=== PATIENT | female | born 1980 | race Caucasian/White ===

== ENCOUNTER 2017-12-20 11:20 | Outpatient (CLI) | payer MEDICAID ==
[2017-12-20 19:26] LABS: BASOPHILS % (AUTO) 0.4 %; EOSINOPHILS # (AUTO) 0.4 10^3/uL (0.0-0.7); EOSINOPHILS % (AUTO) 8.4 %; HGB - HEMOGLOBIN 13.7 g/dL (12.0-16.0); LYMPHOCYTES # (AUTO) 2.1 10^3/uL (1.5-3.5); LYMPHOCYTES % (AUTO) 41.6 %; MEAN CORPUSCULAR HEMOGLOBIN 36.8 pg (27.0-31.0); MEAN CORPUSCULAR HGB CONC 33.1 g/dL (32.0-36.0); MEAN CORPUSCULAR VOLUME 111.4 fL (81.0-99.0); MEAN PLATELET VOLUME 8.6 fL (7.9-10.8); MONOCYTES # (AUTO) 0.5 10^3/uL (0.0-1.0); MONOCYTES % (AUTO) 9.5 %; NEUTROPHILS % (AUTO) 40.1 %; PLT - PLATELET COUNT 154 10^3/uL (130-450); RED BLOOD COUNT 3.73 10^6/uL (4.20-5.40); RED CELL DISTRIBUTION WIDTH 13.3 % (12.0-15.0)
[2017-12-20 19:53] LABS: ALBUMIN 4.3 g/dL (3.2-5.5); ALBUMIN/GLOBULIN RATIO 1.5 (1.0-2.2); ALKALINE PHOSPHATASE 60 IU/L (42-121); ALT ALANINE AMINOTRANSFERASE 45 IU/L (10-60); AST ASPARTATE AMINOTRANSFERASE 62 IU/L (10-42); BILIRUBIN,TOTAL 1.1 mg/dL (0.2-1.0); BUN - BLOOD UREA NITROGEN 16 mg/dL (6-20); CALCIUM 9.1 mg/dL (8.5-10.3); CARBON DIOXIDE - CO2 25 mmol/L (21-32); CHLORIDE 103 mmol/L (101-111); CHOL/HDL RATIO 2.4 (<4.4); CHOLESTEROL 210 mg/dL; CREATININE 0.6 mg/dL (0.4-1.0); GFR - MDRD 112 (>89); GLUCOSE 99 mg/dL (70-100); HDL CHOLESTEROL 88 mg/dL; LDL CHOLESTEROL,CALCULATED 108 mg/dL; LDL/HDL RATIO 1.2 (<4.4); SODIUM 136 mmol/L (135-145); TOTAL PROTEIN 7.1 g/dL (6.7-8.2); VLDL CHOLESTEROL 14 mg/dL
[2017-12-20 20:08] LABS: PLATELET ESTIMATE, MANUAL NORMAL (130-450,000) (NORMAL); PLATELET MORPHOLOGY NORMAL APPEARANCE (NORMAL); RBC MORPHOLOGY (MULTIPLE) 2+ MACROCYTOSIS (NORMAL)
== END 2017-12-20 11:21 | disposition home or self-care (01) ==
LOC: LAB.WCP 11:20
PROVIDERS: ATTEND Physician Assistant Medical
DX: R00.0 Tachycardia, unspecified (principal); I10 Essential (primary) hypertension; R74.8 Abnormal levels of other serum enzymes; D64.9 Anemia, unspecified; R79.9 Abnormal finding of blood chemistry, unspecified; E03.9 Hypothyroidism, unspecified
CPT/HCPCS: 36415; 80053; 80061; 83721; 84443; 85025

== ENCOUNTER 2018-03-15 08:00 | Outpatient (CLI) | payer MEDICAID | END 2018-03-15 08:01 | disposition home or self-care (01) | LOC: LAB.R 08:00 | PROVIDERS: ATTEND Family Medicine | DX: N39.0 Urinary tract infection, site not specified (principal) | CPT/HCPCS: 87086 ==

== ENCOUNTER 2019-04-03 10:20 | Outpatient (CLI) | payer MEDICAID ==
[2019-04-03 12:53] LABS: BASOPHILS # (AUTO) 0.1 10^3/uL (0.0-0.1); BASOPHILS % (AUTO) 1.3 %; EOSINOPHILS # (AUTO) 0.6 10^3/uL (0.0-0.7); EOSINOPHILS % (AUTO) 10.6 %; HGB - HEMOGLOBIN 14.1 g/dL (12.0-16.0); LYMPHOCYTES # (AUTO) 2.4 10^3/uL (1.5-3.5); LYMPHOCYTES % (AUTO) 43.8 %; MEAN CORPUSCULAR HEMOGLOBIN 35.9 pg (27.0-31.0); MEAN CORPUSCULAR HGB CONC 33.5 g/dL (32.0-36.0); MEAN CORPUSCULAR VOLUME 107.2 fL (81.0-99.0); MEAN PLATELET VOLUME 8.5 fL (7.9-10.8); MONOCYTES # (AUTO) 0.5 10^3/uL (0.0-1.0); MONOCYTES % (AUTO) 9.6 %; NEUTROPHILS # (AUTO) 1.9 10^3/uL (1.5-6.6); NEUTROPHILS % (AUTO) 34.7 %; PLT - PLATELET COUNT 181 10^3/uL (130-450); RED BLOOD COUNT 3.92 10^6/uL (4.20-5.40); RED CELL DISTRIBUTION WIDTH 14.1 % (12.0-15.0); WHITE BLOOD COUNT 5.6 x10^3/uL (4.8-10.8)
[2019-04-03 14:36] LABS: ALKALINE PHOSPHATASE 95 IU/L (42-121); ALT ALANINE AMINOTRANSFERASE 227 IU/L (10-60); AST ASPARTATE AMINOTRANSFERASE 537 IU/L (10-42); BILIRUBIN,TOTAL 0.6 mg/dL (0.2-1.0); BUN - BLOOD UREA NITROGEN 13 mg/dL (6-20); CALCIUM 8.8 mg/dL (8.5-10.3); CARBON DIOXIDE - CO2 24 mmol/L (21-32); CHLORIDE 98 mmol/L (101-111); CREATININE 0.5 mg/dL (0.4-1.0); GFR - MDRD 138 (>89); GLUCOSE 79 mg/dL (70-100); SODIUM 138 mmol/L (135-145); TOTAL PROTEIN 7.9 g/dL (6.7-8.2)
[2019-04-03 14:37] LABS: CHOL/HDL RATIO 2.7 (<4.4); CHOLESTEROL 276 mg/dL; HDL CHOLESTEROL 102 mg/dL; LDL CHOLESTEROL,CALCULATED 148 mg/dL; LDL/HDL RATIO 1.5 (<4.4); VLDL CHOLESTEROL 26 mg/dL
== END 2019-04-03 23:59 | disposition home or self-care (01) ==
LOC: LAB.WCP 10:20
PROVIDERS: ATTEND Physician Assistant Medical
DX: E78.00 Pure hypercholesterolemia, unspecified (principal); E03.9 Hypothyroidism, unspecified; D64.9 Anemia, unspecified
CPT/HCPCS: 36415; 80053; 80061; 83721; 84443; 85025

== ENCOUNTER 2019-04-03 11:00 | Outpatient (CLI) | payer MEDICAID ==
--- NOTE | 2019-04-03 13:35 | CT Report ---
Reason: CONCUSSION WITHOUT LOSS OF CONSCIOUSNESS,INITIAL E Procedure Date: 04/03/2019 Accession Number: [id number] / [id number] Procedure: CT - MAXILLOFACIAL WO CPT Code: FULL RESULT: EXAM: CT MAXILLOFACIAL WITHOUT CONTRAST EXAM DATE: 04/03/2019 11:15 AM. CLINICAL HISTORY: 38-year-old woman with left periorbital pain secondary to trauma. COMPARISONS: None. TECHNIQUE: Thin-section axial images were acquired of the face without contrast. Post-processing: Coronal and sagittal reformats. Other: None. In accordance with CT protocol optimization, one or more of the following dose reduction techniques were utilized for this exam: automated exposure control, adjustment of mA and/or KV based on patient size, or use of iterative reconstructive technique. FINDINGS: Paranasal Sinuses: There is mild mucosal thickening in the maxillary sinuses bilaterally and right ethmoid air cells. No air-fluid levels. No fractures. Nasal Cavity and Bones: Clear. No fractures. Mandible: No fracture. Temporomandibular joints are in normal alignment. Skull Base and Mastoid Air Cells: No fractures. Mastoid air cells are clear. Orbits: Globes are intact. Optic nerves are symmetric and normal in caliber bilaterally. Intraconal and extraconal spaces are normal without mass lesion or fat stranding. Soft Tissues: No significant swelling or fat stranding. Surgical clips are present in the visualized anterior right neck. Visualized Intracranial Contents: Unremarkable. IMPRESSION: 1. No fractures or soft tissue injuries. RADIA
== END 2019-04-03 11:01 | disposition home or self-care (01) ==
LOC: DI 11:00
PROVIDERS: ATTEND Physician Assistant Medical
DX: S06.0X0A Concussion without loss of consciousness, initial encounter (principal); E78.00 Pure hypercholesterolemia, unspecified; E03.9 Hypothyroidism, unspecified; D64.9 Anemia, unspecified
CPT/HCPCS: 36415; 70486; 80053; 80061; 84443; 85025

== ENCOUNTER 2021-02-18 20:26 | Outpatient (CLI) | payer MEDICAID ==
--- NOTE | 2021-02-18 21:30 | Ultrasound Report ---
PROCEDURE: OB First Trimester INDICATIONS: PREG TEST POSITIVE OUTSIDE/PRIOR DATING DATA: Last menstrual period (LMP): 12/21/2020. LMP-based estimated date of delivery (SOREN): 09/27/2021. First dating scan (date and location): 02/18/2021. Estimated date of delivery (SOREN) from first dating scan: 09/30/2021. TECHNIQUE: Real-time scanning was performed of the fetus and maternal pelvic organs, with image documentation. COMPARISON: None FINDINGS: Embryo: There is an early first trimester intrauterine with a crown-rump length measuring 1.6 cm, 8 weeks 0 days. There is a heart rate measuring 169 bpm. A small subchorionic hemorrhage is noted measuring 1.1 x 0.8 cm. Measurement variability in dating: +/- 4 weeks by LMP, +/- 7 days by mean sac diameter (use before 6 weeks gestation if crown-rump length not able to be measured), +/- 5 days by crown-rump length (6-12 weeks gestation). Maternal organs: Ovaries are unremarkable. There is a left corpus luteal cyst.. IMPRESSION: 1. Living early first trimester intrauterine with crown-rump length and heart beat. 2. Small subchorionic hemorrhage. Comment: Preliminary findings were provided by the miter saw operator to the referring physician at the time of study completion. Reviewed by: Geovani Wu MD on 02/18/2021 9:28 PM PDT Approved by: Geovani Wu MD on 02/18/2021 9:28 PM PDT Station ID: [id number]
== END 2021-02-18 20:27 | disposition home or self-care (01) ==
LOC: DI 20:26
PROVIDERS: ATTEND Nurse Practitioner Obstetrics & Gynecology
DX: O46.8X1 Other antepartum hemorrhage, first trimester (principal); O34.81 Maternal care for other abnormalities of pelvic organs, first trimester; N83.12 Corpus luteum cyst of left ovary; Z3A.08 8 weeks gestation of pregnancy

== ENCOUNTER 2021-03-01 08:00 | Outpatient (CLI) | payer MEDICAID | END 2021-03-01 23:59 | disposition home or self-care (01) | LOC: LAB.WCP 08:00 | PROVIDERS: ATTEND Nurse Practitioner Obstetrics & Gynecology | DX: O03.9 Complete or unspecified spontaneous abortion without complication (principal); Z32.01 Encounter for pregnancy test, result positive | CPT/HCPCS: 36415; 84702; 86850; 86900; 86901 ==

== ENCOUNTER 2021-03-04 14:37 | Outpatient (CLI) | payer MEDICAID | END 2021-03-04 23:59 | disposition home or self-care (01) | LOC: LAB.WCP 14:37 | PROVIDERS: ATTEND Obstetrics & Gynecology | DX: O03.9 Complete or unspecified spontaneous abortion without complication (principal) | CPT/HCPCS: 36415; 84702 ==

== ENCOUNTER 2021-03-16 08:00 | Outpatient (CLI) | payer MEDICAID | END 2021-03-16 23:59 | disposition home or self-care (01) | LOC: LAB.WCP 08:00 | PROVIDERS: ATTEND Nurse Practitioner Obstetrics & Gynecology | DX: O03.9 Complete or unspecified spontaneous abortion without complication (principal) | CPT/HCPCS: 36415; 84702 ==

== ENCOUNTER 2021-10-26 17:13 | Outpatient (CLI) | payer MEDICAID ==
--- NOTE | 2021-10-26 18:17 | Ultrasound Report ---
PROCEDURE: OB First Trimester w/TV INDICATIONS: + PREG TEST OUTSIDE/PRIOR DATING DATA: Last menstrual period (LMP): 08/16/2021. LMP-based estimated date of delivery (SOREN): 05/23/2022. First dating scan (date and location): 10/26/2021. Estimated date of delivery (SOREN) from first dating scan: 05/24/2022. TECHNIQUE: Real-time scanning was performed of the fetus and maternal pelvic organs, with image documentation. Endovaginal scanning was also performed to better visualize the fetus and maternal ovaries. COMPARISON: None. FINDINGS: Embryo: Intrauterine gestational sac and pole are seen. The crown-rump length measures 3.1 cm, consistent with an estimated gestational age of 10 weeks 0 days. Heterogeneous collection adjacent t o the gestational sac measures 0.9 x 0.8 x 1 cm. Heart rate: 173 bpm. Measurement variability in dating: +/- 4 weeks by LMP, +/- 7 days by mean sac diameter (use before 6 weeks gestation if crown-rump length not able to be measured), +/- 5 days by crown-rump length (6-12 weeks gestation). Maternal organs: The ovaries appear normal. A 2.6 cm left ovarian cyst is noted. IMPRESSION: 1.Single live intrauterine with estimated gestational age by ultrasound of 10 weeks 0 days. 2.Small perigestational sac hemorrhage measuring up to 1 cm. Concordant preliminary findings were conveyed to Dr. Silveira by the aligning checker at the conclusion of the exam. Reviewed by: Trae Barreto MD on 10/26/2021 6:15 PM PST Approved by: Trae Barreto MD on 10/26/2021 6:15 PM PST Station ID: [id number]
== END 2021-10-26 17:14 | disposition home or self-care (01) ==
LOC: DI 17:13
PROVIDERS: ATTEND Obstetrics & Gynecology
DX: Z32.01 Encounter for pregnancy test, result positive (principal)

== ENCOUNTER 2021-10-28 08:26 | Day surgery (SDC) | payer MEDICAID ==
[~2021-10-28 08:26] MED LIST: DEXAMETHASONE 4 MG/ML VIAL ONE; LIDOCAINE-MPF 2% 5 ML VIAL ONE; MIDAZOLAM 2 MG/2 ML VIAL ONE; ONDANSETRON 4 MG/2 ML VIAL ONE; PROPOFOL 200 MG/20 ML VIAL IVP ONE; fentaNYL 100 MCG/2 ML VIAL ONE
[2021-10-28] MEDS ORDERED: ACETAMINOPHEN 1,000 MG/100 ML 100 ML IV ONE (08:35)
[2021-10-28] MEDS ORDERED: CELECOXIB 100 MG CAPSULE PO ONE (08:35)
[2021-10-28] MEDS ORDERED: GABAPENTIN 400 MG CAPSULE ONE (08:36)
[2021-10-28] MEDS ORDERED: DOXYCYCLINE 100 MG TABLET PO ONE (08:40)
[2021-10-28 08:56] LABS: HCT - HEMATOCRIT 36.5 % (37.0-47.0); HGB - HEMOGLOBIN 12.1 g/dL (12.0-16.0); MEAN CORPUSCULAR HEMOGLOBIN 33.3 pg (27.0-31.0); MEAN CORPUSCULAR HGB CONC 33.2 g/dL (32.0-36.0); MEAN CORPUSCULAR VOLUME 100.6 fL (81.0-99.0); MEAN PLATELET VOLUME 8.3 fL (7.9-10.8); RED BLOOD COUNT 3.63 10^6/uL (4.20-5.40); RED CELL DISTRIBUTION WIDTH 13.4 % (12.0-15.0); WHITE BLOOD COUNT 8.1 x10^3/uL (4.8-10.8)
[2021-10-28] MEDS ORDERED: LACTATED RINGERS 1,000 ML IV ONE ×2 (08:58→10:10)
--- NOTE | 2021-10-28 08:59 | HISTORY & PHYSICAL EXAMINATION ---
HPI - History of Present Illness HPI Comment/Other: HPI: Patient is a 41-year-old -0-2-0 presenting today to discuss elective . She had 1 prior spontaneous and 1 prior elective termination. She has an LMP that is certain of 08/16/2021. Transvaginal ultrasound dated at 10 weeks 3 days gestation. Patient was counseled previous in clinic about the risk and benefits surgery and would like to proceed. All other symptoms reviewed and were negative except per HPI. PMH 10 weeks gestation of (ICD-V28.9) (BOZ75-V8Y.10) Cellulitis, leg, left (ICD-682.6) (EOZ22-Z96.116) , elective (ICD-635.90) (ZMX08-M21.9) test positive (ICD-V72.42) (YMI81-Q94.01) Preventive health care (ICD-V70.0) (ZPS89-Q00.00) Concussion without loss of consciousness, initial encounter (ICD-850.11) (ICD10- S06.0x0A) Vitamin D deficiency (ICD-268.9) (HJF80-L35.9) ALLERGIC RHINITIS (ICD-477.9) (JRB04-K05.9) Hypercholesterolemia (ICD-272.0) (KLG15-C08.00) Thyroid cyst (ICD-246.2) (ITN87-S24.1) Screening for lipid disorders (ICD-V77.91) (OVP69-B57.89) Thrombocytopenia (ICD-287.5) (UUI16-Z47.6) Tachycardia (ICD-785.0) (TDE00-M29.0) Elevated liver enzymes (ICD-790.6) (EAM06-Z27.8) Leukopenia, mild (ICD-288.50) (GZJ13-D56.819) ANEMIA (ICD-285.9) (ACN38-J34.9) Hypothyroidism (ICD-244.9) (QGR70-B26.9) Paresthesia - left hand (ICD-782.0) (NNT59-A03.9) Hypertension, benign essential (ICD-401.1) (EAB23-Q90) Abnormal Pap smear, LGSIL (ICD-795.09) (UAJ42-U73.612) Abnormal pap smear (ICD-795.00) (NUT75-R51.6) DEPRESSION (ICD-311) (CUU96-Q31.9) Situational anxiety (ICD-300.09) (ULK03-V63.8) TENDINITIS, LEFT WRIST (ICD-727.05) (TYB05-Z04.8) RADIAL NERVE INJURY (ICD-955.3) (LKB08-V65.20) CONTUSION, HIP, RIGHT (ICD-924.01) (ROX80-T48.01) LUMBAR STRAIN (ICD-847.2) (LTK37-T96.012) SHOULDER IMPINGEMENT SYNDROME (ICD-726.2) (JTK33-L47.40) CERVICAL LYMPHADENOPATHY (ICD-785.6) (URO94-C23.0) TINEA CORPORIS (ICD-110.5) (LNM99-F90.4) ECZEMA NOS (ICD-692.9) (LQA28-S73.9) PSH Left neck cyst removal SH 1/2 pack/day tobacco. Occasional alcohol. No drug use Family History Mother: of PE, cirrhosis, anorexia Father: Emphysema, melanoma Sister: Anxiety, tachycardia Maternal grandmother: Thyroid disease Maternal grandfather: Diabetes Allergies BACTRIM (Critical) SULFA (Critical) * GABAPENTIN (Moderate) * IVORY SOAP (Moderate) Medications Nasal spray Physical exam: See nursing notes for vitals. General: Alert, oriented, no acute distress Head: Normal cephalic atraumatic Eyes: PERRLA, extraocular motions intact. Respiratory: Normal rate of respiration. No accessory muscle use, normal respiratory effort. Cardiovascular: Regular rate and rhythm Abdomen: Nontender, nondistended Extremities: Normal range of motion Neuro: Oriented x3. Normal movements Psych: Appropriate mood and affect. Normal judgment and insight Plan 41-year-old -0-2-0 at 10 weeks 3 days gestation for elective termination of 1. Elective termination of -Patient counseled on risk and benefits of suction D&C for termination. She agrees to these risks and would like to proceed. PMH/PSH - Past Medical History Cardiovascular: positive: Hypertension, Other Respiratory: positive: None Endocrine/Autoimmune: positive: HyPOthyroidism GI: positive: None : positive: None HEENT: positive: None Psych: positive: None Musculoskeletal: positive: None MRSA Hx?: No Meds/Allgy - Home Medications Home Medications: Ambulatory Orders Medication Instructions Recorded Confirmed Amox/Clav 875/125 [Augmentin 1 tab ORAL BID 10/27/21 10/27/21 875/125 Tab] - Allergies Allergies/Adverse Reactions: Allergies Allergy/AdvReac Type Severity Reaction Status Date / Time Sulfa (Sulfonamide Allergy Itching Verified 10/28/21 08:54 Antibiotics)
[2021-10-28] MEDS ORDERED: BUPIVACAINE 0.25% PF 10 ML VIAL ONE (09:13)
[2021-10-28] MEDS ORDERED: LIDOCAINE MPF 2%-EPI 1:200000 20 ML VIAL ONE (09:13)
--- NOTE | 2021-10-28 09:15 | ANESTHESIA ---
Pre-Anesthesia VS, & Labs - Diagnosis desires to not be - Procedure D and C, evacuation Height: 5 ft 3 in Weight (kg): 54.2 kg Body Mass Index: 21.2 BMI Classification: Healthy weight - Is Patient ?: Yes - Lab Results Current Lab Results: Laboratory Tests 10/28/21 08:48: WBC 8.1, RBC 3.63 L, Hgb 12.1, Hct 36.5 L, MCV 100.6 H, MCH 33.3 H, MCHC 33.2, RDW 13.4, Plt Count 294, MPV 8.3 Fish Bones: 10/28/21 08:48 Home Medications and Allergies Home Medications: Ambulatory Orders Amox/Clav 875/125 [Augmentin 875/125 Tab] 1 tab ORAL BID 10/27/21 Amox/Clav 875/125 [Augmentin 875/125 Tab] 1 tab ORAL BID 10/27/21 Allergies/Adverse Reactions: Allergies Allergy/AdvReac Type Severity Reaction Status Date / Time Sulfa (Sulfonamide Allergy Itching Verified 10/28/21 08:54 Antibiotics) Anes History & Medical History - Anesthetic History Anesthesia Complications: reports: No previous complications - Medical History Cardiovascular: reports: Hypertension, Other Pulmonary: reports: None Gastrointestinal: reports: None Urinary: reports: None Musculoskeletal: reports: None Endocrine/Autoimmune: reports: HyPOthyroidism History of Cancer?: No - Surgical History Eyes Ears Nose Throat (EENT): reports: Other (parotidectomy) Exam General: Alert, Oriented x3 Dental: WNL Neck Mobility: Normal Mallampati classification: I Thyromental Distance: greater than 6 cm Respiratory: Lungs clear Cardiovascular: Regular rate, Normal S1, Normal S2 Plan Anesthesia Type: General Consent for Procedure(s) Verified and Reviewed: Yes Code Status: Attempt Resuscitation ASA classification: 2-Mild systemic disease Is this case an emergency?: No
[2021-10-28] MEDS ORDERED: BUPIVACAINE 0.25% PF 10 ML VIAL SUBQ ONE (09:44)
[2021-10-28] MEDS ORDERED: LIDOCAINE 2%-EPI 1:100000 20 ML MDV SUBQ ONE (09:44)
--- NOTE | 2021-10-28 10:13 | OPERATIVE REPORT ---
Operative Report - General Procedure Date: 10/28/21 Planned Procedure: Suction D&C Pre-Op Diagnosis: 10 weeks gestation, undesired Procedure Performed: Suction D&C Post Op Diagnosis: 10 weeks gestation, undesired , status post suction D&C - Procedure Note Primary Surgeon: Jamil Silveira MD Anesthesia Provider: Jimmie Lee CRNA Anesthesia Technique: General mask Pathology: Products of conception IV Fluids (mL): 700 Estimated Blood Loss (mL): 400 Urine Output (mL): 50 Findings: Uterine sounded to 10 cm. What appears to be a gestational sac seen. Complications: None - Other Other Information/Narrative: Suction D&C Patient was placed in dorsal high lithotomy position with yellowfin stirrups.. The pelvis was prepped and the patient was draped in the usual fashion. Careful pelvic examination is performed to locate the position of the uterus and noted a closed cervical os. A bivalve speculum was placed in the vagina and the cervix was grasped with a single-tooth tenaculum and gently drawn towards the vaginal outlet. 16 ml of 2% bupivacaine with 0.25% Marcain were used and injected in the uterosacral ligaments. Using gentle pressure, the cervix was gradually dilated to 11 mm. A 10 mm rigid, curved suction catheter was used for suction. The catheter was placed without suction into the uterine cavity. After insertion, suction was initiated, and blood and products of conception were collected in the section catheter container. After adequate removal of products, a sharp curette was used to remove additional products of conception adherent to uterine garcia. The products were collected on a Telfa pad. After removing products of conception and feeling circumferential uterine cri, renée quate hemostasis was noted from coming from the uterus and the tenaculum was removed. Tenaculum site was hemostatic. Upon reexamination the patient was hemostatic and all instruments were removed. Sponge and needle counts were correct x2. Patient was returned to dorsal supine position and awoke from anesthesia. She was taken to the PACU in good condition.
[2021-10-28] MEDS ORDERED: MORPHINE 2 MG/ML CARPUJECT IVP PRN (10:33)
[2021-10-28] MEDS ORDERED: fentaNYL 100 MCG/2 ML VIAL IVP PRN (10:33)
[2021-10-28] MEDS ORDERED: ePHEDrine 50 MG/ML VIAL IVP PRN (10:33)
[2021-10-28] MEDS ORDERED: NALOXONE 0.4 MG/ML VIAL IVP PRN (10:33)
[2021-10-28] MEDS ORDERED: ONDANSETRON 4 MG/2 ML VIAL IVP PRN (10:33)
[2021-10-28] MEDS ORDERED: ATROPINE ABBOJECT 1 MG/10 ML SYRINGE IVP PRN (10:33)
[2021-10-28] MEDS ORDERED: HYDROmorphone 0.5 MG/0.5 ML SYRINGE IVP PRN (10:33)
[2021-10-28] MEDS ORDERED: METOCLOPRAMIDE 10 MG/2 ML VIAL IVP PRN (10:33)
--- NOTE | 2021-10-28 10:44 | ANESTHESIA POST OP EVALUATION ---
Anesthesia Post Eval - Post Anesthesia Eval Vitals: Last Vital Signs Temp 36.0 C L 10/28/21 10:31 Pulse 80 10/28/21 10:31 Resp 10 L 10/28/21 10:31 BP 127/94 H 10/28/21 10:31 Pulse Ox 100 10/28/21 10:31 CV Function Including HR & BP: Stable Pain Control: Satisfactory Nausea & Vomiting: Negative Mental Status: Baseline Respiratory Status: Airway Patent Hydration Status: Satisfactory Anesthesia Complications: None
[2021-10-28] MEDS ORDERED: LACTATED RINGERS 1,000 ML IV SCH (11:00)
[2021-10-28 11:07] VITALS: BP 134/98
== END 2021-10-28 08:27 | disposition home or self-care (01) ==
LOC: SDS 08:26
PROVIDERS: ATTEND Obstetrics & Gynecology
PROC: 10A07ZZ Abortion of Products of Conception, Via Natural or Artificial Opening (ICD-10-PCS; principal; 2021-10-28 09:15)
DX: Z33.2 Encounter for elective termination of pregnancy (principal); I10 Essential (primary) hypertension
CPT/HCPCS: 36415; 59841; 85027; 86850; 86900; 86901; A9270; J0131; J7120

== ENCOUNTER 2023-09-15 11:16 | Outpatient (CLI) | payer MEDICAID | END 2023-09-15 23:59 | disposition short-term general hospital (02) | LOC: EMS 11:16 | DX: N93.9 Abnormal uterine and vaginal bleeding, unspecified (principal); R10.31 Right lower quadrant pain; R10.32 Left lower quadrant pain | CPT/HCPCS: A0425; A0427; A0999 ==